=== PATIENT | male | born 1970 | race Caucasian/White ===

== ENCOUNTER 2017-06-12 11:27 | Day surgery (SDC) | payer OTHER ==
[~2017-06-12] VITALS: Ht 167.6 cm; Wt 70.8 kg
[~2017-06-12 11:27] MED LIST: ALEN70 PO; BACL20
[2017-06-12] MEDS ORDERED: ASPI81CH PO (12:06)
[2017-06-12] MEDS ORDERED: Depo-Testo100 MG/1 M IM (12:07)
== END 2017-06-12 14:25 | disposition home or self-care (01) ==
LOC: ORSCSDS 11:27
PROVIDERS: Internal Medicine Gastroenterology
PROC: 0DBK8ZX Excision of Ascending Colon, Via Natural or Artificial Opening Endoscopic, Diagnostic (ICD-10-PCS; principal; 2017-06-12 13:00)
DX: Z12.11 Encounter for screening for malignant neoplasm of colon (principal); D12.2 Benign neoplasm of ascending colon; Z80.0 Family history of malignant neoplasm of digestive organs; Z83.71 Family history of colonic polyps; G80.9 Cerebral palsy, unspecified; Z79.899 Other long term (current) drug therapy
CPT/HCPCS: 88305; J7120

== ENCOUNTER → 2017-09-14 | Outpatient (CLI) | payer OTHER ==
[~2017-09-14] MED LIST changes: +ASPI81CH PO; +Depo-Testo100 MG/1 M IM
== END | disposition home or self-care (01) ==
LOC: PLD 11:03 → LAB SHORT 11:03
DX: L98.9 Disorder of the skin and subcutaneous tissue, unspecified (principal)
CPT/HCPCS: 88304

== ENCOUNTER 2018-06-08 06:05 | Day surgery (SDC) | payer OTHER ==
[~2018-06-08] VITALS: Ht 167.6 cm; Wt 76.8 kg
--- NOTE | 2018-06-08 08:24 | NUR ---
06/08/18 0824 Nyla Zimmerman V PT RESTING IN RECLINER, OPERATIVE LIMB ELEVATED AND ICE APPLIED. PTS VSS. PT DENIES PAIN AND NAUSEA AT THIS TIME AND IS TOLERATING PO NURISHMENT. PT TRANSFERED WITH ASSISTANCE FROM BED TO RECLINER. PT STATES HE IS "VERY TIRED". PTS MOTHER IN RECOVERY ROOM.
== END 2018-06-08 09:00 | disposition home or self-care (01) ==
LOC: ORSCSDS 06:05
PROVIDERS: Podiatrist Foot & Ankle Surgery
PROC: 0LNW0ZZ Release Left Foot Tendon, Open Approach (ICD-10-PCS; principal; 2018-06-08 07:00)
DX: M20.5X2 Other deformities of toe(s) (acquired), left foot (principal); G80.9 Cerebral palsy, unspecified; G40.909 Epilepsy, unspecified, not intractable, without status epilepticus; Z79.82 Long term (current) use of aspirin; Z79.899 Other long term (current) drug therapy
CPT/HCPCS: J0690; J1100; J2250; J2370; J2405; J3010

== ENCOUNTER 2023-03-31 09:18 | Day surgery (SDC) | payer OTHER ==
[~2023-03-31] VITALS: Ht 167.6 cm; Wt 71.6 kg
[2023-03-31] MEDS ORDERED: Vitamin D1000 UNI1 (09:31)
[2023-03-31] MEDS ORDERED: Calcium Carbon500 MG (09:32)
[2023-03-31] MEDS ORDERED: XYOSTED100 MG/0.1 (09:32)
[2023-03-31] MEDS ORDERED: ALEN70 (09:32)
[2023-03-31] MEDS ORDERED: Aspir 8181 MG (09:32)
[2023-03-31] MEDS ORDERED: TURMERIC500 M2 (09:33)
[2023-03-31 11:44] VITALS: BP 123/85
== END 2023-03-31 11:50 | disposition home or self-care (01) ==
LOC: ORSCSDS 09:18
PROVIDERS: Internal Medicine Gastroenterology
PROC: 0DBL8ZX Excision of Transverse Colon, Via Natural or Artificial Opening Endoscopic, Diagnostic (ICD-10-PCS; principal; 2023-03-31 10:30)
PROC: 0DBC8ZX Excision of Ileocecal Valve, Via Natural or Artificial Opening Endoscopic, Diagnostic (ICD-10-PCS; principal; 2023-03-31 10:30)
DX: Z12.11 Encounter for screening for malignant neoplasm of colon (principal); Z86.010 Personal history of colon polyps; Z83.719 Family history of colon polyps, unspecified; K63.5 Polyp of colon; Z79.899 Other long term (current) drug therapy
CPT/HCPCS: 88305; J2704; J7120